=== PATIENT | female | born 2000 | race African-American/Black ===

== ENCOUNTER 2022-06-20 14:04 | Emergency (ER) | payer SELFPAY ==
[~2022-06-20] VITALS: Ht 149.9 cm; Wt 47.8 kg
[2022-06-20 14:54] VITALS: BP 129/72
[2022-06-20 15:06] LABS: Hematocrit 39.5 % (36.0-46.0); Hemoglobin 12.7 g/dL (12.2-16.2); Mean Corpuscular Hemoglobin 27.5 pg (28.0-32.0); Mean Corpuscular Hgb Conc. 32.1 g/dL (32.0-36.0); Mean Corpuscular Volume 85.6 fL (80.0-100.0); Red Blood Cells 4.62 10^6/uL (4.0-5.20); Red Cell Distribution Width 16.9 % (11.8-14.3); White Blood Cell 4.6 10^3/uL (4.4-10.8)
[2022-06-20 15:22] LABS: Albumin 3.8 g/dL (3.4-5.0); BUN/Creatinine Ratio 7.1; Potassium 4.1 mmol/L (3.5-5.1)
[2022-06-20 15:24] LABS: Band Neutrophils % (manual) 0; Basophils % (manual) 0 (0.0-2.0); Blast Cells 0; Eosinophils % (manual) 0 (0-7); Metamyelocytes % 0; Myelocytes % 0; Promyelocytes % 0; Reactive Lymphocytes 0
[2022-06-20 15:24] LABS: Bilirubin, Total 0.3 mg/dL (0.2-1.0); Total Protein 7.6 g/dL (6.4-8.2)
[2022-06-20 16:34] LABS: Urine Bacteria FEW /hpf (None Seen); Urine Blood Negative /uL (Negative); Urine Mucus FEW (None Seen); Urine Specific Gravity 1.029 (1.001-1.035); Urine WBC <1 /hpf (0 - 5)
[2022-06-20 17:43] LABS: Lymphocytes % (manual) 42 (10.0-50.0); Monocytes % (manual) 22 (0-12)
== END 2022-06-20 21:22 | disposition home or self-care (01) ==
LOC: ER 14:04
DX: R07.89 Other chest pain (principal); R05.9 Cough, unspecified
CPT/HCPCS: 36415; 71045; 80053; 81001; 83880; 84484; 85007; 85027; 85379; 93005